=== PATIENT | male | born 1970 | race Caucasian/White ===

== ENCOUNTER 2024-04-25 07:26 | Day surgery (SDC) | payer OTHER ==
[~2024-04-25] VITALS: Ht 170.2 cm; Wt 79.4 kg
[2024-04-25] MEDS ORDERED: fentaNYL CITRATE/PF 100 MCG/2 ML AMP ONE ×2 (07:54→09:25)
[2024-04-25] MEDS ORDERED: MIDAZOLAM HCL 5 MG/5 ML VIAL ONE ×2 (07:54→09:25)
[2024-04-25] MEDS ORDERED: DIPHENHYDRAMINE INJ 50 MG/ML VIAL ONE (09:13)
[2024-04-25] MEDS ORDERED: ONDANSETRON HCL 4 MG/2 ML VIAL ONE (09:40)
[2024-04-25 13:49] VITALS: O2SAT 99
[2024-04-25 14:24] VITALS: BP_SYST 138; PULSE 62; RESP 17
== END 2024-04-25 10:52 | disposition home or self-care (01) ==
LOC: SDS 07:26 → SMU 07:27 → SDS 10:52
PROVIDERS: ATTEND Internal Medicine
DX: Z12.11 Encounter for screening for malignant neoplasm of colon (principal); K57.30 Diverticulosis of large intestine without perforation or abscess without bleeding; K64.8 Other hemorrhoids; F41.9 Anxiety disorder, unspecified; Z87.891 Personal history of nicotine dependence; Z98.890 Other specified postprocedural states
CPT/HCPCS: 45378; 99152; 99153; G0378; J1200; J2250; J2405; J3010